=== PATIENT | female | born 1960 | race Caucasian/White ===

== ENCOUNTER 2023-04-09 07:43 | Day surgery (SDC) | payer BC ==
[2023-04-06 17:07] VITALS: BMI 22.8
[2023-04-09] MEDS ORDERED: ONDANSETRON 4 MG/2 ML VIAL ONE (08:16)
[2023-04-09 08:53] VITALS: RESP 16; TEMP 97.6
[2023-04-09 09:21] VITALS: BP 128/69; PULSE 82
== END 2023-04-09 09:15 | disposition home or self-care (01) ==
LOC: FASU-ENDO 07:43
PROVIDERS: ATTEND Internal Medicine Gastroenterology
PROC: 0DB98ZX Excision of Duodenum, Via Natural or Artificial Opening Endoscopic, Diagnostic (ICD-10-PCS; 2023-04-09)
PROC: 0DB78ZX Excision of Stomach, Pylorus, Via Natural or Artificial Opening Endoscopic, Diagnostic (ICD-10-PCS; 2023-04-09)
PROC: 0DJD8ZZ Inspection of Lower Intestinal Tract, Via Natural or Artificial Opening Endoscopic (ICD-10-PCS; principal; 2023-04-09 08:11)
DX: Z12.11 Encounter for screening for malignant neoplasm of colon (principal); K29.70 Gastritis, unspecified, without bleeding; K31.A11 Gastric intestinal metaplasia without dysplasia, involving the antrum; B96.81 Helicobacter pylori [H. pylori] as the cause of diseases classified elsewhere
CPT/HCPCS: 88305-TC; 88342-TC

== ENCOUNTER 2024-06-07 17:59 | Emergency (ER) | payer BC, OTHER ==
[2024-06-07 19:15] VITALS: BP 134/84; PULSE 84; RESP 20; TEMP 98.6; BMI 23.0
== END 2024-06-07 19:37 | disposition home or self-care (01) ==
LOC: FER 17:59
DX: M54.10 Radiculopathy, site unspecified (principal); R94.31 Abnormal electrocardiogram [ECG] [EKG]
CPT/HCPCS: 93005; 93010; 99283-25